=== PATIENT | female | born 1970 | race Caucasian/White ===

== ENCOUNTER 2018-03-02 11:51 | Outpatient (CLI) | payer OTHER | END 2018-03-02 11:52 | disposition home or self-care (01) | LOC: BICRAD 11:51 | PROVIDERS: ATTEND Family Medicine | DX: M79.672 Pain in left foot (principal); M19.072 Primary osteoarthritis, left ankle and foot ==

== ENCOUNTER 2019-09-21 04:21 | Emergency (ER) | payer OTHER ==
--- NOTE | 2019-09-21 07:53 | RAD ---
Exam: Chest one view HISTORY:Fever. Shortness of breath. Asthma. Comparison: 04/16/2017 FINDINGS: Cardiac silhouette: Normal Aorta: Unremarkable Pulmonary vessels: Normal Costophrenic angles: Clear LUNGS: No masses or consolidation. Pneumothorax: None Osseous abnormalities: None IMPRESSION: No acute cardiopulmonary process.
== END 2019-09-21 05:11 | disposition home or self-care (01) ==
LOC: ERS 04:21
DX: Z20.828 Contact with and (suspected) exposure to other viral communicable diseases (principal); R50.9 Fever, unspecified; I10 Essential (primary) hypertension; J45.909 Unspecified asthma, uncomplicated; Z79.899 Other long term (current) drug therapy
CPT/HCPCS: 71045

== ENCOUNTER 2020-03-23 12:52 | Outpatient (CLI) | payer OTHER | END 2020-03-23 12:53 | disposition home or self-care (01) | LOC: DTY/OP 12:52 | PROVIDERS: ATTEND Surgery | DX: E66.01 Morbid (severe) obesity due to excess calories (principal) | CPT/HCPCS: 97802 ==

== ENCOUNTER 2020-04-26 15:09 | Outpatient (CLI) | payer OTHER ==
--- NOTE | 2020-04-26 16:46 | MRI ---
EXAM: MRI right shoulder PROVIDED CLINICAL HISTORY: Right shoulder pain COMPARISON: None FINDINGS: Evaluation is limited by patient motion. There is no evidence for full-thickness rotator cuff tear. The long head biceps tendon appears intact and normally located. The glenoid labrum and glenohumeral articular cartilage are suboptimally evaluated in the absence of joint distention, but appear grossly normal. The amount of fluid within the glenohumeral joint appears physiologic. There is greater than physiologic subacromial subdeltoid bursal fluid. Acromioclavicular joint osteoarthrosis is demonstrated, without significant mass effect upon the subj acent supraspinatus. No focal concerning regional marrow or muscular signal abnormality is evident. IMPRESSION: 1. Limited study due to patient motion. 2. Greater than physiologic subacromial subdeltoid bursal fluid, which may reflect bursitis. 3. Acromioclavicular joint osteoarthrosis.
== END 2020-04-26 15:10 | disposition home or self-care (01) ==
LOC: BICMRI 15:09
PROVIDERS: ATTEND Family Medicine
DX: S49.91XD Unspecified injury of right shoulder and upper arm, subsequent encounter (principal); M19.011 Primary osteoarthritis, right shoulder

== ENCOUNTER 2020-05-02 07:04 | Outpatient (CLI) | payer OTHER ==
--- NOTE | 2020-05-02 16:40 | RAD ---
Chest 2 views HISTORY: Preop. COMPARISON: 09/21/2019. FINDINGS: Cardiac silhouette and pulmonary vasculature are unremarkable. Mediastinum is midline. Calcified granulomata are consistent with healed granulomatous disease. No lobar consolidation or magan dence of pneumothorax. IMPRESSION : No active cardiopulmonary abnormalities are demonstrated.
[2020-05-02 18:38] LABS: #Eosinphils 0.4 10x3/uL (0.0-0.5); #Monocytes 0.8 10x3/uL (0.0-1.1); #Neutrophils 7.2 10x3/uL (1.5-8.4); %Basophils 0.4 % (0.0-2.0); %Eosinophils 3.4 % (0.0-6.0); %Lymphocytes 22.8 % (18.0-47.0); %Neutrophils 66.1 % (40.0-75.0); Hemoglobin 15.1 g/dL (12.0-16.0); Mean Corpuscular HGB CONC 33.6 G/DL (32.0-36.0); Mean Corpuscular Hemoglobin 28.1 PG (27.0-33.0); Mean Corpuscular Volume 83.8 fl (80.0-100.0); Mean Platelet Volume 11.1 fl (7.4-10.4); Platelet Count 423 10x3/uL (130-400); RBC Distribution Width 13.2 % (11.5-14.5); Red Blood Cell (RBC) Count 5.37 10x6/uL (3.90-5.20); White Blood Cell (WBC) Count 10.8 10x3/uL (4.5-11.0)
[2020-05-02 18:39] LABS: ALT (SGPT) 14 U/L (8-55); AST (SGOT) 14 U/L (5-34); Albumin 4.6 g/dL (3.5-5.0); Alkaline Phosphatase 93 U/L (40-110); Anion Gap 16 mmol/L (10-20); BUN (Urea Nitrogen) 12 mg/dL (7.0-18.7); Bilirubin, Total 0.2 mg/dL (0.2-1.2); Calc. Creatinine Clearance 0 mL/min (70-130); Calcium 9.2 mg/dL (7.8-10.44); Carbon Dioxide 25 mmol/L (22-29); Chloride 101 mmol/L (98-107); Estimated GFR-MDRD 80; Globulin 3.5 g/dL (2.4-3.5); Glucose 112 mg/dL (70-105); Potassium 3.9 mmol/L (3.5-5.1); Protein, Total 8.1 g/dL (6.0-8.3); Sodium 138 mmol/L (136-145)
[2020-05-02 21:10] LABS: Hemoglobin A1c 5.6 % (4.0-6.0)
[2020-05-03 03:41] LABS: SARS-CoV-2 MS2 Positive; SARS-CoV-2 N Gene Negative; SARS-CoV-2 S Gene Negative; SARS-CoV-2 by NAA Not Detected (NotDetected); SARS-CoV-2 orf1ab Negative
== END 2020-05-02 07:05 | disposition home or self-care (01) ==
LOC: LABBT 07:04
PROVIDERS: ATTEND Surgery
DX: Z01.818 Encounter for other preprocedural examination (principal); E66.01 Morbid (severe) obesity due to excess calories; Z20.828 Contact with and (suspected) exposure to other viral communicable diseases
CPT/HCPCS: 71046; 80053; 83036; 85025; 87635; U0003

== ENCOUNTER 2020-05-02 16:30 | Inpatient (IN) | payer OTHER ==
[2020-05-02 09:46] VITALS: BMI 35.9
[2020-05-07] MEDS ORDERED: Heparin 5,000 UNITS/ML VIAL ONE (09:54)
[2020-05-07] MEDS ORDERED: Fentanyl 250 MCG/5 ML VIAL ONE (10:58)
[2020-05-07] MEDS ORDERED: SUGAMMADEX SODIUM 200 MG/2 ML VIAL ONE (10:58)
[2020-05-07] MEDS ORDERED: Bupivacaine 0.25% HCL 30 ML VIAL ONE (11:06)
[2020-05-07] MEDS ORDERED: Lidocaine 1% w/Epinephrine 1:100K 20 ML VIAL ONE (11:06)
[2020-05-07] MEDS ORDERED: Midazolam HCl 2 mg/2 ml Vial ONE (11:27)
[2020-05-07] MEDS ORDERED: diphenhydrAMINE 50 MG/ML VIAL IVP PRN ×2 (12:55→13:26)
[2020-05-07] MEDS ORDERED: Ondansetron PF 4 MG/2 ML Vial IVP PRN ×2 (12:55→13:26)
[2020-05-07] MEDS ORDERED: Dextrose 50% Abboject 50 ML SYRINGE SLOW IVP PRN (12:55)
[2020-05-07] MEDS ORDERED: Promethazine HCl 25 MG/ML VIAL IM PRN ×2 (12:55→13:26)
[2020-05-07] MEDS ORDERED: Dextrose 5% in Water 1,000 ML IV PRN (12:55)
[2020-05-07] MEDS ORDERED: cloNIDine 0.1 MG TAB PO PRN (12:55)
[2020-05-07] MEDS ORDERED: Hydrocodone-Acetamin 15 ML UDCUP PO PRN (12:55)
[2020-05-07] MEDS ORDERED: hydrALAZINE 20 MG/ML VIAL SLOW IVP PRN (12:55)
[2020-05-07] MEDS ORDERED: diphenhydrAMINE 50 MG/ML VIAL IM PRN (13:26)
[2020-05-07] MEDS ORDERED: diphenhydrAMINE 25 MG CAP PO PRN (13:26)
[2020-05-07] MEDS ORDERED: Naloxone HCl 0.4 mg/ml Vial IV PRN (13:26)
[2020-05-07] MEDS ORDERED: Zolpidem Tartrate 5 MG TAB PO PRN (13:26)
[2020-05-07] MEDS ORDERED: fentaNYL Citrate/PF 2,000 MCG in Sodium Chloride 0.9% 60 ML IV PRN (13:26)
[2020-05-07] MEDS ORDERED: Communication Order-Pharmacy FS SCH (13:30)
[2020-05-07] MEDS ORDERED: Promethazine HCl 25 MG/ML VIAL ONE (13:33)
[2020-05-07] MEDS ORDERED: Rocuronium Bromide 10 MG/ML (10ML VIAL) ONE (13:48)
[2020-05-07] MEDS ORDERED: Ondansetron PF 4 MG/2 ML Vial ONE ×2 (13:48→14:04)
[2020-05-07] MEDS ORDERED: Glycopyrrolate 0.2 MG/ML 5 ML SYRINGE ONE (13:48)
[2020-05-07] MEDS ORDERED: Lidocaine 1% PF 5 ML VIAL ONE (13:48)
[2020-05-07] MEDS ORDERED: ePHEDrine/0.9% NaCl/PF SYRINGE 50 mg/10 ml ONE (13:48)
[2020-05-07] MEDS ORDERED: Dexamethasone 20 MG/5 ML VIAL ONE (13:48)
[2020-05-07] MEDS ORDERED: PROPOFOL 200 MG/20 ML VIAL ONE (13:48)
[2020-05-07] MEDS ORDERED: Metoclopramide HCl 10 MG/2 ML VIAL ONE (14:20)
--- NOTE | 2020-05-07 15:28 | OP ---
DATE OF PROCEDURE: 05/07/2020 PREOPERATIVE DIAGNOSES: 1. Morbid obesity with a body mass index of 36. 2. Hypertension. 3. Sleep apnea. POSTOPERATIVE DIAGNOSES: 1. Morbid obesity with a body mass index of 36. 2. Hypertension. 3. Sleep apnea. 4. Paraesophageal hiatal hernia. PROCEDURES PERFORMED: 1. Laparoscopic sleeve gastrectomy with Ethicon staple line reinforcements and 38-Swedish bougie. 2. Paraesophageal hiatal hernia repair without mesh for fundoplication. 3. Esophagogastroduodenoscopy. ANESTHESIA: General. ESTIMATED BLOOD LOSS: Minimal. COMPLICATIONS: None. SPECIMEN: Stomach. FINDINGS: Hiatal hernia, small. TECHNIQUE: The patient was taken to the operating room and laid supine on the operating room table. After general anesthetic was obtained, the arms and legs were double strapped to bariatric table. The abdomen was prepped and draped in a sterile fashion. OG tube had been used to decompress the stomach. Left subcostal 5-mm Optiview trocar was placed in usual fashion. High-flow pneumoperitoneum was obtained. Left and right abdominal 12 mm ports as well as a right subcostal 5-mm port were placed under direct visualization. A 5-mm incision was made at the xiphoid, and a Negrito was used to raise the liver off the GE junction. Short gastrics were taken from midbody of stomach to left cristobal of diaphragm. Left cristobal, posterior fundus, and angle of His were completely dissected. There was a small paraesophageal hiatal hernia. The fundus was brought back into the abdominal cavity. Circumferential dissection of the esophagus was then performed. This was facilitated by dissection along the medial side of the GE junction as well through the gastrohepatic ligament. The 38 bougie was brought in its tip left in the antrum of the stomach. The short gastrics had been taken down to a distance of 6 cm proximal to the pylorus. Multiple loads of [place] stapling device with an Ethicon staple line reinforcements used to form the sleeve. The first was fired up at a distance of 6 cm proximal to the pylorus, angled up towards the incisura. Care was taken to avoid being too close incisura. Multiple loads then fired along the bougie. Stomach was completely transected at the angle of His. Stomach was removed from the left abdominal incision. This fascial defect was closed using GraNee needle and Vicryl tie. EGD scope was passed through esophagus and stomach to the level of the duodenum without obstruction. There was no stricture at the incisura. There was no air leakage through the staple line. There was no bleeding on the staple line. EGD scope was used to decompress stomach. It was pulled and removed. The posterior diaphragmatic hiatus was closed using one Ethibond suture and the Ti-KNOT system. No fundoplication or placement of mesh was performed. All port sites were infiltrated using local anesthetic. All ports were removed under camera visualization. Pneumoperitoneum was let down. Vicryl was used to close the fascial defect from the left abdominal incisions. All incisions were irrigated and closed using 4-0 Monocryl and Dermabond. The patient was sent to Recovery in stable condition. All instrument counts, needle counts, and lap counts were correct. Job ID: [id number]
[2020-05-07] MEDS: Carvedilol 6.25 MG TAB PO SCH (20:37)
[2020-05-07] MEDS: D5 1/2 NS w/20 mEq KCL 1,000 ML IV SCH ×2 (20:37→20:38)
[2020-05-07] MEDS ORDERED: Enoxaparin Sodium 40 MG/0.4 ML SYRINGE SC SCH (21:00)
[2020-05-08] MEDS: D5 1/2 NS w/20 mEq KCL 1,000 ML IV SCH ×2 (04:41→12:57)
[2020-05-08 05:58] LABS: #Basophils 0.2 thou/uL (0.0-0.2); #Lymphocytes 0.7 thou/uL (1.20-3.40); #Monocytes 0.7 thou/uL (0.11-0.59); #Neutrophils 10.8 thou/uL (1.40-6.50); %Basophils 1.4 % (0.0-1.0); %Eosinophils 0.2 % (0.0-10.0); %Lymphocytes 5.8 % (21.0-51.0); %Monocytes 5.8 % (0.0-10.0); %Neutrophils 86.8 % (42.0-75.0); Hemoglobin 13.3 g/dL (12.0-16.0); Mean Corpuscular HGB CONC 33.3 g/dL (32.0-36.0); Mean Corpuscular Hemoglobin 28.5 pg (27.0-31.0); Mean Corpuscular Volume 85.7 fL (78.0-98.0); Mean Platelet Volume 8.1 fL (7.4-10.4); Platelet Count 322 thou/uL (130-400); RBC Distribution Width 12.3 % (11.5-14.5); Red Blood Cell (RBC) Count 4.66 mill/uL (4.20-5.40); White Blood Cell (WBC) Count 12.4 thou/uL (4.8-10.8)
[2020-05-08 06:19] LABS: Anion Gap 12 mmol/L (10-20); BUN (Urea Nitrogen) 10 mg/dL (7.0-18.7); Calc. Creatinine Clearance 159 mL/min (70-130); Carbon Dioxide 25 mmol/L (22-29); Chloride 102 mmol/L (98-107); Estimated GFR-MDRD 85; Glucose 150 mg/dL (70-105); Sodium 135 mmol/L (136-145)
--- NOTE | 2020-05-08 06:59 | PDOC.GSPN ---
Surgery Progress Note: Subj - Subjective Patient reports: pain well controlled, tolerating liquids well, no flatus Narrative: Joyce Maravilla is a 49 year old female with a past medical history of obesity, hypertension, and sleep apnea, is post op day 1 from a laparoscopic sleeve gastrectomy and paraesophageal hiatal hernia repair. Her pain is well controlled. She initially had some nausea, but this was controlled with medication. She has a previous history of asthma, and ever since the procedure, she has complained of some chest tightness and a low O2 sat. As a result, she has been walking a lot and using the spirometer. She denies reflux. She has been tolerating a liquid diet well. No bowel movement or passing gas; she has been voiding ok. Surgery Progress Note: Obj - Vital signs Vital signs: Vital Signs - Most Recent Temp Pulse Resp BP Pulse Ox 98.3 F 83 16 146/90 H 92 L 05/08/20 03:40 05/08/20 03:40 05/08/20 03:40 05/08/20 03:40 05/08/20 03:40 - Physical Exam General: no distress, well developed, well nourished, obese Cardiovascular: regular rate and rhythm Respiratory: clear to auscultation, breath sounds present Abdomen: soft, positive bowel sounds, appropriately tender Integumentary: no abnormal pigmentation Psychiatric: oriented to time, oriented to person, oriented to place Wound: dressing clean,dry,intact, healing well Surgery Progress Note: Results - Labs Result Diagrams: 05/08/20 05:29 05/08/20 05:29 Lab results: Laboratory Results - last 12 hr 05/08/20 05/08/20 05:29 05:29 WBC 12.4 H RBC 4.66 Hgb 13.3 Hct 40.0 MCV 85.7 MCH 28.5 MCHC 33.3 RDW 12.3 Plt Count 322 MPV 8.1 Neutrophils % 86.8 H Lymphocytes % 5.8 L Monocytes % 5.8 Eosinophils % 0.2 Basophils % 1.4 H Neutrophils # 10.8 H Lymphocytes # 0.7 L Monocytes # 0.7 H Eosinophils # 0.0 Basophils # 0.2 Sodium 135 L Potassium 4.0 Chloride 102 Carbon Dioxide 25 Anion Gap 12 BUN 10 Creatinine 0.73 Estimated GFR (MDRD) 85 Glucose 150 H Calcium 9.0 Surgery Progress Note: A/P - Problem (1) Status post laparoscopic sleeve gastrectomy Current Visit: Yes Code(s): Z98.84 - BARIATRIC SURGERY STATUS Status: Acute (2) Asthma Current Visit: No Code(s): J45.909 - UNSPECIFIED ASTHMA, UNCOMPLICATED Status: Chronic (3) Hypertension Current Visit: No Code(s): I10 - ESSENTIAL (PRIMARY) HYPERTENSION Status: Chronic (4) Obstructive sleep apnea Current Visit: No Code(s): G47.33 - OBSTRUCTIVE SLEEP APNEA (ADULT) (PEDIATRIC) Status: Chronic - Plan Plan: Joyce Maravilla is a 49 year old female who is post op day 1 of a laparoscopic sleeve gastrectomy and paraesophageal hiatal hernia repair. Overall, she is doing well. She has PRN medications for her asthma for any wheezing or severe symptoms. She said that she is ready for a full liquid diet, but will further discuss this with Dr. Ruelas. Nausea and pain are under control, and she is am bulating. We discussed if she feels ok with going home today or staying another day, and she said that she is fine with either, so she will discuss this further with Dr. Ruelas.
[2020-05-08] MEDS: Carvedilol 6.25 MG TAB PO SCH (08:17)
[2020-05-08] MEDS ORDERED: Pantoprazole 40 MG VIAL IVP SCH (09:00)
[2020-05-08] MEDS ORDERED: Hydrochlorothiazide 25 MG TAB PO SCH (09:00)
[2020-05-08] MEDS ORDERED: Losartan 25 MG TAB PO SCH (09:00)
[2020-05-08] MEDS ORDERED: Amlodipine 5 MG TAB PO SCH (09:00)
[2020-05-08 14:53] VITALS: BP 119/73; TEMP 98.3
--- NOTE | 2020-05-09 02:41 | DIS ---
DATE OF ADMISSION: 05/07/2020 DATE OF DISCHARGE: 05/08/2020 ADMITTING DIAGNOSES: Morbid obesity, hypertension. DISCHARGE DIAGNOSES: Morbid obesity, hypertension. PROCEDURE PERFORMED: Laparoscopic sleeve gastrectomy by Dr. Ruelas without complication. CONDITION ON DISCHARGE: Improved. STAFF: Gamal Ruelas MD HOSPITAL COURSE: On postop day 1, the patient is doing well. She is tolerating the liquid diet. She has been ambulatory, and her pain is controlled. She is discharged home. Prescriptions for Lortab Elixir, Protonix, and Zofran were already sent to her pharmacy. She will follow up with me in 2 weeks. Job ID: [id number]
== END 2020-05-08 14:45 | disposition home or self-care (01) | DRG 621 ==
LOC: SURG A 05-07 09:15
PROVIDERS: ADMIT Surgery; ATTEND Surgery
PROC: 0DB64Z3 Excision of Stomach, Percutaneous Endoscopic Approach, Vertical (ICD-10-PCS; principal; 2020-05-07)
PROC: 0BQT4ZZ Repair Diaphragm, Percutaneous Endoscopic Approach (ICD-10-PCS; 2020-05-07)
PROC: 0DJ08ZZ Inspection of Upper Intestinal Tract, Via Natural or Artificial Opening Endoscopic (ICD-10-PCS; 2020-05-07)
DX: E66.01 Morbid (severe) obesity due to excess calories (principal); I10 Essential (primary) hypertension; Z20.828 Contact with and (suspected) exposure to other viral communicable diseases; K44.9 Diaphragmatic hernia without obstruction or gangrene; J45.909 Unspecified asthma, uncomplicated; G47.33 Obstructive sleep apnea (adult) (pediatric); Z68.36 Body mass index [BMI] 36.0-36.9, adult; Z79.899 Other long term (current) drug therapy
CPT/HCPCS: 36415; 80048; 85025; 88307; 88312; 93005; 93010; C9113; J0690; J1100; J1644; J1650; J2250; J2405; J2550; J2704; J2765; J3010; J3480; S0020

== ENCOUNTER 2020-06-26 13:16 | Day surgery (SDC) | payer OTHER ==
[2020-06-26] MEDS ORDERED: Ondansetron PF 4 MG/2 ML Vial IVP PRN (13:23)
[2020-06-26] MEDS ORDERED: Sodium Chloride 0.9% 20 ML ONE (13:28)
[2020-06-26] MEDS ORDERED: Sodium Chloride 0.9% 1,000 ML IV SCH (13:30)
[2020-06-26] MEDS ORDERED: Multivitamins, Adult 10 ML, Thiamine HCl 100 MG in Sodium Chloride 0.9% 1,000 ML IV SCH (13:45)
[2020-06-26] MEDS ORDERED: MULTIVITAMINS IV SCH (14:30)
[2020-06-26] MEDS ORDERED: SODIUM CHLORIDE 0.9% IV SCH (14:30)
[2020-06-26] MEDS ORDERED: THIAMINE HCL IV SCH (14:30)
== END 2020-06-26 16:19 | disposition home or self-care (01) ==
LOC: ONC/OP 13:16
PROVIDERS: ATTEND Surgery
DX: E86.0 Dehydration (principal); Z88.1 Allergy status to other antibiotic agents
CPT/HCPCS: 96361; 96365; J3411; J7050

== ENCOUNTER 2020-08-08 08:48 | Day surgery (SDC) | payer OTHER ==
[2020-08-08] MEDS ORDERED: Ondansetron PF 4 MG/2 ML Vial IVP PRN (09:14)
[2020-08-08] MEDS ORDERED: Sodium Chloride 0.9% 1,000 ML IV SCH (09:15)
[2020-08-08] MEDS ORDERED: Thiamine HCl 100 MG, Multivitamins, Adult 10 ML in Sodium Chloride 0.9% 1,000 ML IM SCH (09:15)
[2020-08-08 09:41] LABS: #Basophils 0.1 thou/uL (0.0-0.2); #Eosinphils 0.3 thou/uL (0.0-0.7); #Lymphocytes 1.9 thou/uL (1.20-3.40); #Monocytes 0.8 thou/uL (0.11-0.59); #Neutrophils 5.6 thou/uL (1.40-6.50); %Basophils 0.6 % (0.0-1.0); %Eosinophils 3.3 % (0.0-10.0); %Lymphocytes 22.4 % (21.0-51.0); %Monocytes 8.6 % (0.0-10.0); %Neutrophils 65.1 % (42.0-75.0); Hemoglobin 13.7 g/dL (12.0-16.0); Mean Corpuscular HGB CONC 32.8 g/dL (32.0-36.0); Mean Corpuscular Hemoglobin 28.9 pg (27.0-31.0); Mean Corpuscular Volume 88.2 fL (78.0-98.0); Mean Platelet Volume 9.6 fL (7.4-10.4); Platelet Count 307 thou/uL (130-400); RBC Distribution Width 13.1 % (11.5-14.5); Red Blood Cell (RBC) Count 4.76 mill/uL (4.20-5.40); White Blood Cell (WBC) Count 8.7 thou/uL (4.8-10.8)
[2020-08-08 09:57] VITALS: BP 124/76; TEMP 98.6
[2020-08-08 10:04] LABS: Anion Gap 17 mmol/L (10-20); BUN (Urea Nitrogen) 13 mg/dL (7.0-18.7); Calc. Creatinine Clearance 0 mL/min (70-130); Calcium 8.9 mg/dL (7.8-10.44); Carbon Dioxide 22 mmol/L (22-29); Chloride 105 mmol/L (98-107); Glucose 99 mg/dL (70-105); Potassium 4.8 mmol/L (3.5-5.1); Sodium 139 mmol/L (136-145)
[2020-08-08 10:07] LABS: Vitamin D, 25 Hydroxy 33.1 ng/ml (> 30.0)
[2020-08-08] MEDS ORDERED: Sodium Chloride 0.9% 20 ML ONE (10:10)
[2020-08-08 10:12] LABS: Ferritin 256.5 ng/mL (10-291)
== END 2020-08-08 12:18 | disposition home or self-care (01) ==
LOC: ONC/OP 08:48
PROVIDERS: ATTEND Surgery
DX: E86.0 Dehydration (principal); Z88.1 Allergy status to other antibiotic agents
CPT/HCPCS: 80048; 82306; 82607; 82728; 84425; 85025; 96361; 96365; 96366; J3411; J7050

== ENCOUNTER 2021-10-06 19:05 | Emergency (ER) | payer OTHER ==
[2021-10-06] MEDS ORDERED: EPINEPHrine 1 MG/10 ML Abboject SYRINGE ONE (19:12)
[2021-10-06] MEDS ORDERED: EPINEPHrine 1 MG/ML VIAL ONE (19:13)
[2021-10-06] MEDS ORDERED: methylPREDNISolone Sod Succ/PF 125 MG/2 ML VIAL ONE (19:18)
[2021-10-06] MEDS ORDERED: Famotidine/PF 20 mg/2ml Vial ONE (19:18)
== END 2021-10-06 20:19 | disposition home or self-care (01) ==
LOC: ERS 19:05
DX: T88.6XXA Anaphylactic reaction due to adverse effect of correct drug or medicament properly administered, initial encounter (principal); T36.8X5A Adverse effect of other systemic antibiotics, initial encounter; I10 Essential (primary) hypertension; Z79.899 Other long term (current) drug therapy
CPT/HCPCS: 96372; 96374; 96375; J0171; J2930; S0028